=== PATIENT | male | born 1980 | race Caucasian/White ===

== ENCOUNTER 2022-07-22 11:49 | Emergency (ER) | payer OTHER ==
[~2022-07-22] VITALS: Ht 167.6 cm; Wt 93.9 kg
[2022-07-22] MEDS ORDERED: LISINOPRIL10 MG PO (12:06)
[2022-07-22] MEDS ORDERED: CRESTOR20 MG PO (12:07)
[2022-07-22] MEDS ORDERED: SYNTHROID175 MCG PO (12:07)
[2022-07-22] MEDS ORDERED: TOPROL XL50 M1 PO (12:07)
[2022-07-22] MEDS ORDERED: HUMALOG100 UNIT/1 (12:08)
== END 2022-07-22 13:51 | disposition home or self-care (01) ==
LOC: ER 11:49
DX: S62.102A Fracture of unspecified carpal bone, left wrist, initial encounter for closed fracture (principal); S63.512A Sprain of carpal joint of left wrist, initial encounter; W18.39XA Other fall on same level, initial encounter; Y93.89 Activity, other specified; Y92.091 Bathroom in other non-institutional residence as the place of occurrence of the external cause; Y99.8 Other external cause status

== ENCOUNTER 2022-09-18 07:13 | Outpatient (CLI) | payer OTHER ==
[~2022-09-18 07:13] MED LIST: CRESTOR20 MG PO; HUMALOG100 UNIT/1; LISINOPRIL10 MG PO; SYNTHROID175 MCG PO; TOPROL XL50 M1 PO
== END 2022-09-18 07:15 | disposition home or self-care (01) ==
LOC: LAB 07:13
DX: E10.9 Type 1 diabetes mellitus without complications (principal); E03.8 Other specified hypothyroidism

== ENCOUNTER 2022-11-14 09:53 | Outpatient (CLI) | payer OTHER | END 2022-11-14 09:59 | disposition home or self-care (01) | LOC: RAD 09:53 | DX: M99.01 Segmental and somatic dysfunction of cervical region (principal); M99.02 Segmental and somatic dysfunction of thoracic region; M99.03 Segmental and somatic dysfunction of lumbar region; M99.04 Segmental and somatic dysfunction of sacral region; M99.05 Segmental and somatic dysfunction of pelvic region ==

== ENCOUNTER 2022-11-24 10:00 | Outpatient (CLI) | payer OTHER | END 2022-11-24 10:10 | disposition home or self-care (01) | LOC: PPH VACUNA 10:00 | PROVIDERS: ATTEND Emergency Medicine Pediatric Emergency Medicine | DX: Z23 Encounter for immunization (principal) | CPT/HCPCS: 90686; G0008 ==

== ENCOUNTER 2022-11-30 14:43 | Emergency (ER) | payer OTHER ==
[~2022-11-30] VITALS: Ht 167.6 cm; Wt 94.3 kg
[2022-11-30] MEDS ORDERED: PRILOSEC OTC20 MG PO (17:28)
[2022-11-30] MEDS ORDERED: PEPCID AC20 MG PO (17:28)
== END 2022-11-30 17:41 | disposition home or self-care (01) ==
LOC: ER 14:43
PROVIDERS: Nurse Practitioner Family
DX: R42 Dizziness and giddiness (principal); E11.9 Type 2 diabetes mellitus without complications; Z79.4 Long term (current) use of insulin; E03.9 Hypothyroidism, unspecified; I10 Essential (primary) hypertension; E78.49 Other hyperlipidemia; R12 Heartburn

== ENCOUNTER 2022-12-03 10:41 | Emergency (ER) | payer OTHER ==
[~2022-12-03] VITALS: Ht 162.6 cm; Wt 90.7 kg
[~2022-12-03 10:41] MED LIST changes: +PEPCID AC20 MG PO; +PRILOSEC OTC20 MG PO
== END 2022-12-03 13:45 | disposition home or self-care (01) ==
LOC: ER 10:41
DX: K21.9 Gastro-esophageal reflux disease without esophagitis (principal); K29.70 Gastritis, unspecified, without bleeding; E11.9 Type 2 diabetes mellitus without complications; Z79.4 Long term (current) use of insulin; I10 Essential (primary) hypertension

== ENCOUNTER 2022-12-11 10:08 | Outpatient (CLI) | payer OTHER | END 2022-12-11 11:29 | disposition home or self-care (01) | LOC: LAB 10:08 | PROVIDERS: ATTEND Internal Medicine Gastroenterology | DX: J20.9 Acute bronchitis, unspecified (principal); R05.9 Cough, unspecified; R06.02 Shortness of breath ==

== ENCOUNTER 2023-01-12 15:58 | Outpatient (CLI) | payer OTHER | END 2023-01-12 16:02 | disposition home or self-care (01) | LOC: RAD 15:58 | PROVIDERS: ATTEND Physical Medicine & Rehabilitation | DX: M25.551 Pain in right hip (principal); M54.2 Cervicalgia ==

== ENCOUNTER 2023-02-14 10:45 | Outpatient (CLI) | payer OTHER | END 2023-02-14 11:19 | disposition home or self-care (01) | LOC: NUCLEAR 10:45 | DX: R60.9 Edema, unspecified (principal); E11.40 Type 2 diabetes mellitus with diabetic neuropathy, unspecified ==

== ENCOUNTER 2023-02-15 07:46 | Outpatient (CLI) | payer OTHER | END 2023-02-15 07:47 | disposition home or self-care (01) | LOC: NUCLEAR 07:46 | PROVIDERS: ATTEND Physical Medicine & Rehabilitation | DX: I83.813 Varicose veins of bilateral lower extremities with pain (principal) ==

== ENCOUNTER 2024-01-31 01:45 | Outpatient (CLI) | payer OTHER ==
[~2024-01-31 01:45] MED LIST changes: +METAXALONE800 MG PO; +NORFLEX100MG PO
== END 2024-01-31 02:00 | disposition home or self-care (01) ==
LOC: PPH VACUNA 01:45
PROVIDERS: ATTEND Emergency Medicine Pediatric Emergency Medicine
DX: Z23 Encounter for immunization (principal)

== ENCOUNTER → 2024-05-30 07:34 | Outpatient (CLI) | payer OTHER ==
[2024-05-30 08:33] LABS: PH,URINE 5.5 (5.0-8.0); URINE APPEARANCE Clear; URINE BILIRRUBIN Negative (NEGATIVE); URINE BLOOD Negative; URINE COLOR Yellow; URINE GLUCOSE Negative (NEGATIVE); URINE KETONE Negative (NEGATIVE); URINE LEUKOCYTE Negative; URINE NITRATE Negative; URINE PROTEIN Negative (NEGATIVE); URINE UROBILINOGEN 0.2 E.U./dl
[2024-05-30 08:36] LABS: URINE BACTERIA 12.2 uL (0.0-1933); URINE EPITHELIAL CELLS 1.4 uL (0.0-38.8); URINE RBC 3.8 uL (0.0-20.8); URINE WBC 5.6 uL (0.0-23.2)
[2024-05-30 08:39] LABS: HEMATOCRIT 43.9 % (39.0-48.0); MEAN CELL VOLUME 88.1 fL (80.0-100.00); MEAN CORPUSCULAR HEMOGLOBIN 30.1 pg (27.00-32.0); MEAN CORPUSCULAR HGB CONC 34.2 g/dl (32.0-36.0); PLATELET COUNT 252 K/uL (150-450); RED BLOOD COUNT 4.98 M/uL (4.00-6.00); RED CELL DISTRIBUTION WIDTH 14.2 % (11.5-14.5)
[2024-05-30 09:50] LABS: ALBUMIN 3.8 gm/dL (3.4-5.0); BILIRUBIN TOTAL 0.66 mg/dL (0.3-1.2); CHOL HDL RATIO 2.4 (0-5.0); CREATININE SERUM 0.87 mg/dL (0.70-1.30); GFR 96.23; POTASSIUM 5.15 mEq/L (3.5-5.1); TOTAL PROTEIN 6.8 gm/dL (6.4-8.2)
[2024-05-30 09:54] LABS: TSH 5.63 uIU/mL (0.358-3.74)
== END | disposition home or self-care (01) ==
LOC: LAB 07:34
DX: E10.9 Type 1 diabetes mellitus without complications (principal); E03.8 Other specified hypothyroidism; M25.551 Pain in right hip; E78.2 Mixed hyperlipidemia; I10 Essential (primary) hypertension; E55.9 Vitamin D deficiency, unspecified

== ENCOUNTER 2024-07-02 15:51 | Emergency (ER) | payer OTHER ==
[~2024-07-02] VITALS: Ht 167.6 cm; Wt 87.5 kg
[2024-07-02] MEDS ORDERED: KETOROLAC TROMETHAMINE 60 MG VIAL IM ONE ×2 (16:45→17:03)
[2024-07-02] MEDS ORDERED: IBU800 MG PO (18:14)
== END 2024-07-02 19:49 | disposition home or self-care (01) ==
LOC: ER 15:51
DX: M79.671 Pain in right foot (principal); M77.31 Calcaneal spur, right foot; E11.9 Type 2 diabetes mellitus without complications; Z79.4 Long term (current) use of insulin; I10 Essential (primary) hypertension; E03.9 Hypothyroidism, unspecified

== ENCOUNTER 2024-12-01 06:13 | Outpatient (CLI) | payer OTHER ==
[~2024-12-01 06:13] MED LIST changes: +IBU800 MG PO
[2024-12-01 08:12] LABS: ALT/SGPT 29.0 U/L (12-78); AST/SGOT 17.0 U/L (15-37); BILIRUBIN TOTAL 0.68 mg/dL (0.3-1.2); BUN CREA RATIO 34.0 (7.0-25.0); CREATININE SERUM 0.65 mg/dL (0.70-1.30); GFR 134.07; GLOBULINA 2.8 G/DL (2.4-3.5); GLUCOSE FASTING 107.0 mg/dL (65-100); OSMOLALITY SERUM 285.0 MOSM/KG (275-295)
[2024-12-01 08:19] LABS: TSH 0.019 uIU/mL (0.358-3.74)
[2024-12-01 12:55] LABS: VITAMIN D3 25 HYDROXY 36.38 ng/ml (30-120)
== END 2024-12-01 06:20 | disposition home or self-care (01) ==
LOC: LAB 06:13
DX: E10.65 Type 1 diabetes mellitus with hyperglycemia (principal); E03.5 Myxedema coma